=== PATIENT | male | born 1955 | race Caucasian/White ===

== ENCOUNTER 2020-06-22 12:33 | Outpatient (REF) | payer OTHER, SELFPAY | END 2020-06-22 12:34 | disposition home or self-care (01) | LOC: HO.LAB 12:33 | PROVIDERS: Visit Provider Internal Medicine | DX: Z20.828 Contact with and (suspected) exposure to other viral communicable diseases (principal) | CPT/HCPCS: 87635 ==

== ENCOUNTER 2020-07-01 10:27 | Outpatient (REF) | payer OTHER, SELFPAY | END 2020-07-01 10:28 | disposition home or self-care (01) | LOC: HO.LAB 10:27 | PROVIDERS: PCP Internal Medicine; Visit Provider Internal Medicine | DX: Z20.828 Contact with and (suspected) exposure to other viral communicable diseases (principal) | CPT/HCPCS: C9803; U0003 ==

== ENCOUNTER 2020-07-24 10:04 | Outpatient (REF) | payer OTHER, SELFPAY | END 2020-07-24 10:05 | disposition home or self-care (01) | LOC: HO.LAB 10:04 | PROVIDERS: Visit Provider Internal Medicine | DX: Z20.828 Contact with and (suspected) exposure to other viral communicable diseases (principal) | CPT/HCPCS: C9803; U0003 ==

== ENCOUNTER 2020-08-10 11:38 | Outpatient (REF) | payer OTHER, SELFPAY | END 2020-08-10 11:39 | disposition home or self-care (01) | LOC: HO.LAB 11:38 | PROVIDERS: Visit Provider Internal Medicine | DX: Z20.828 Contact with and (suspected) exposure to other viral communicable diseases (principal) | CPT/HCPCS: C9803; U0003 ==